=== PATIENT | male | born 1990 | race Caucasian/White ===

== ENCOUNTER 2018-04-26 20:34 | Emergency (ER) | payer MEDICAID ==
[2018-04-26 21:28] LABS: MUDS CUTOFF CONCENTRATIONS CUTOFF CONC BELOW:
[2018-04-26 21:30] LABS: BILIRUBIN,URINE NEGATIVE (NEGATIVE); GLUCOSE, URINE (UA) NEGATIVE (NEGATIVE); KETONES,URINE (UA) NEGATIVE (NEGATIVE); LEUKOCYTE ESTERASE, URINE NEGATIVE (NEGATIVE); NITRITE,URINE NEGATIVE (NEGATIVE); OCCULT BLOOD,URINE NEGATIVE (NEGATIVE); PROTEIN,URINE NEGATIVE (NEGATIVE); UROBILINOGEN,URINE 1 (NORMAL) E.U./dL (NORMAL)
[2018-04-26 21:31] LABS: CLARITY,URINE CLEAR (CLEAR)
[2018-04-26 21:44] LABS: AMPHETAMINE SCREEN,URINE NEGATIVE (NEGATIVE); BENZODIAZEPINES SCREEN, URINE NEGATIVE (NEGATIVE); COCAINE SCREEN URINE NEGATIVE (NEGATIVE); METHADONE SCREEN, URINE NEGATIVE (NEGATIVE); METHAMPHETAMINES SCREEN, URINE NEGATIVE (NEGATIVE); OPIATE SCREEN, URINE NEGATIVE (NEGATIVE); OXYCODONE SCREEN, URINE NEGATIVE (NEGATIVE); PROPOXYPHENE SCREEN, URINE NEGATIVE (NEGATIVE); TRICYCLIC ANTIDEPRESSANT,URINE NEGATIVE (NEGATIVE)
[2018-04-26 21:48] LABS: BASOPHILS % (AUTO) 0.5 %; EOSINOPHILS # (AUTO) 0.3 10^3/uL (0.0-0.7); EOSINOPHILS % (AUTO) 4.5 %; HGB - HEMOGLOBIN 13.2 g/dL (14.0-18.0); LYMPHOCYTES # (AUTO) 2.7 10^3/uL (1.5-3.5); LYMPHOCYTES % (AUTO) 35.4 %; MEAN CORPUSCULAR HEMOGLOBIN 29.4 pg (27.0-31.0); MEAN CORPUSCULAR HGB CONC 33.4 g/dL (32.0-36.0); MEAN PLATELET VOLUME 8.9 fL (7.4-11.4); MONOCYTES # (AUTO) 0.5 10^3/uL (0.0-1.0); NEUTROPHILS % (AUTO) 52.6 %; PLT - PLATELET COUNT 273 10^3/uL (130-450); RED BLOOD COUNT 4.48 10^6/uL (4.70-6.10); RED CELL DISTRIBUTION WIDTH 13.7 % (12.0-15.0); WHITE BLOOD COUNT 7.7 x10^3/uL (4.8-10.8)
[2018-04-26 22:03] LABS: ALBUMIN 3.9 g/dL (3.2-5.5); ALBUMIN/GLOBULIN RATIO 1.1 (1.0-2.2); ALKALINE PHOSPHATASE 39 IU/L (42-121); ALT ALANINE AMINOTRANSFERASE 16 IU/L (10-60); AST ASPARTATE AMINOTRANSFERASE 20 IU/L (10-42); BILIRUBIN,TOTAL 0.2 mg/dL (0.2-1.0); BUN - BLOOD UREA NITROGEN 14 mg/dL (6-20); CALCIUM 8.6 mg/dL (8.5-10.3); CARBON DIOXIDE - CO2 25 mmol/L (21-32); CHLORIDE 104 mmol/L (101-111); CREATININE 0.7 mg/dL (0.6-1.2); GFR - MDRD 134 (>89); GLUCOSE 103 mg/dL (70-100); LIPASE 28 U/L (22-51); SALICYLATE < 6.0 mg/dL; SODIUM 136 mmol/L (135-145); TOTAL PROTEIN 7.4 g/dL (6.7-8.2)
[2018-04-26 22:04] LABS: ACETAMINOPHEN < 10 ug/mL (10-30)
--- NOTE | 2018-04-26 22:22 | ED Physician Documentation ---
PD HPI MHE - Stated complaint Stated Complaint: MHE - Chief complaint Chief Complaint: MHE - History obtained from History obtained from: Patient - History of Present Illness Primary symptom: Suicidal ideation Timing - onset: How many weeks ago (3) Pain level max: 0 Pain level now: 0 Similar symptoms before: Diagnosis (depression, anxiety, PTSD, bipolar) Recently seen: Emergency Dept ([facility] one week ago ([facility] gabapentin, T+R), 3 days ago ([facility] for depression, T+R)) Review of Systems Cardiac: reports: Reviewed and negative Respiratory: reports: Reviewed and negative GI: reports: Reviewed and negative Psychiatric: reports: Depressed, Suicidal, Anxiety, Insomnia. denies: Homicidal , Hallucinations, Delusions PD PAST MEDICAL HISTORY - Past Medical History Past Medical History: Yes Respiratory: Asthma Psych: Depression, Anxiety, Bipolar disorder Musculoskeletal: Chronic back pain Other Past Medical History: Psycosis - Past Surgical History Past Surgical History: No - Present Medications Home Medications: Ambulatory Orders Medication Instructions Recorded Confirmed Divalproex Sodium [Depakote] 500 mg PO 04/26/18 Gabapentin 04/26/18 Paradis 150 mg PO 04/26/18 Risperidone [Risperdal] 04/26/18 hydrOXYzine PAMOATE [Vistaril] 04/26/18 04/26/18 traZODone [Desyrel] 100 mg PO HS 04/26/18 04/26/18 Gabapentin 300 mg PO Q8HR #20 capsule 04/27/18 - Allergies Allergies/Adverse Reactions: Allergies Allergy/AdvReac Type Severity Reaction Status Date / Time No Known Drug Allergies Allergy Verified 04/26/18 21:11 - Social History Does the pt smoke?: Yes Smoking Status: Current every day smoker Does the pt drink ETOH?: No Does the pt have substance abuse?: No Substance Use and Type: Marijuana, Meth - Immunizations Immunizations are current?: No - POLST Patient has POLST: No PD ED PE NORMAL - Vitals Vital signs reviewed: Yes - General General: Alert and oriented X 3, No acute distress, Well developed/nourished - HEENT HEENT: PERRL, EOMI - Cardiac Cardiac: RRR, No murmur - Respiratory Respiratory: No respiratory distress, Clear bilaterally - Abdomen Abdomen: Soft, Non tender - Neuro Neuro: Alert and oriented X 3 - Psych Psych: Normal mood, Other (blunted affect) Results - Vitals Vitals: Vital Signs - 24 hr 04/26/18 04/27/18 21:07 08:55 Temperature 36.2 C L Heart Rate 89 95 Respiratory 18 18 Rate Blood Pressure 138/78 H 141/81 H O2 Saturation 98 99 Oxygen O2 Source Room air - Labs Labs: Laboratory Tests 04/26/18 04/26/18 04/26/18 21:20 21:42 21:42 WBC 7.7 RBC 4.48 L Hgb 13.2 L Hct 39.5 L MCV 88.0 MCH 29.4 MCHC 33.4 RDW 13.7 Plt Count 273 MPV 8.9 Neut # 4.0 Lymph # 2.7 [place] # 0.5 Eos # 0.3 Baso # 0.0 Absolute Nucleated RBC 0.00 Nucleated RBC % 0.0 Sodium 136 Potassium 3.6 Chloride 104 Carbon Dioxide 25 Anion Gap 7.0 BUN 14 Creatinine 0.7 Estimated GFR (MDRD) 134 Glucose 103 H Calcium 8.6 Total Bilirubin 0.2 AST 20 ALT 16 Alkaline Phosphatase 39 L Total Protein 7.4 Albumin 3.9 Globulin 3.5 Albumin/Globulin Ratio 1.1 Lipase 28 Urine Color YELLOW Urine Clarity CLEAR Urine pH 7.0 Ur Specific [place] 1.020 Urine Protein NEGATIVE Urine Glucose (UA) NEGATIVE Urine Ketones NEGATIVE Urine Occult Blood NEGATIVE Urine Nitrite NEGATIVE Urine Bilirubin NEGATIVE Urine Urobilinogen 1 (NORMAL) Ur Leukocyte Esterase NEGATIVE Ur Microscopic Review NOT INDICATED Urine Culture Comments NOT INDICATED Salicylates < 6.0 Urine Opiates Screen NEGATIVE Ur Oxycodone Screen NEGATIVE Urine Methadone Screen NEGATIVE Ur Propoxyphene Screen NEGATIVE Acetaminophen < 10 L Ur Barbiturates Screen NEGATIVE Ur Tricyclics Screen NEGATIVE Ur Phencyclidine Scrn NEGATIVE Ur Amphetamine Screen NEGATIVE U Methamphetamines Scrn NEGATIVE U Benzodiazepines Scrn NEGATIVE Urine Cocaine Screen NEGATIVE U Cannabinoids Screen NEGATIVE Ethyl Alcohol < 5.0 PD MEDICAL DECISION MAKING - ED course Complexity details: reviewed results, re-evaluated patient, considered differential, d/w patient ED course: depressed with vague suicidal thoughts (denies plan), also hearing voices. told someone at the [facility] he is staying at, and they called 911.here voluntarily. cleared for discharge by [facility] in AM after medical clearance. patient says to me that he feels comfortable and safe going home and will return or call 911 if he feels he needs to be reevaluated. Departure - Departure Disposition: 01 Home, Self Care Clinical Impression: Depression Condition: Good Instructions: ED Depression Prescriptions: Gabapentin 300 mg PO Q8HR #20 capsule Discharge Date/Time: 04/27/18 09:03
[2018-04-27 08:56] VITALS: BP 141/81
== END 2018-04-27 09:03 | disposition home or self-care (01) ==
LOC: ED 20:34
DX: F32.9 Major depressive disorder, single episode, unspecified (principal); F17.200 Nicotine dependence, unspecified, uncomplicated
CPT/HCPCS: 36415; 80053; 80306; 80307; 80320; 80329; 81001; 81003; 83690; 85025; 87086; 99283